=== PATIENT | female | born 1990 | race Caucasian/White ===

== ENCOUNTER 2017-01-24 08:20 | Emergency (ER) | payer OTHER ==
[2017-01-24] MEDS ORDERED: NAPROXEN 500 MG TABLET (FP) PO ONE (08:31)
[2017-01-24 08:37] VITALS: BP 137/87; PULSE 87; TEMP 98.5; BMI 41.5
--- NOTE | 2017-01-24 08:37 | PDOC ---
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 No trauma, never had bruising or swelling or redness, but reports discomfort along the dorsal lateral aspect of her left hand , particularly with movement of her thumb. No notable strain, no motor or sensory deficit, did not take anything for pain, presents today for evaluation because she is worried about her ability to work tomorrow. Clear that she's not , LMP 7/2. Past History - Past Medical History Allergies/Adverse Reactions: Allergies Allergy/AdvReac Type Severity Reaction Status Date / Time Sulfa (Sulfonamide Allergy Verified 01/24/17 08:22 Antibiotics) Home Medications: Ambulatory Orders Naproxen [Naprosyn -] 500 mg PO BID PRN #20 tablet 01/24/17 Review of Systems - Review of Systems Constitutional: No: Chills, Fever Musculoskeletal: Yes: Muscle Pain. No: Joint Pain Integumentary: No: Rash Neurological: No: Paresthesia, Weakness *Physical Exam - Physical Exam Comments: 01/24/17 08:33 GENERAL: The patient is awake, alert, and fully oriented, in no acute distress. HEAD: Normal with no signs of trauma. EYES: Pupils equal, round and reactive to light, extraocular movements intact, sclera anicteric, conjunctiva clear. EXTREMITIES: Normal skin, no swelling or discoloration/bruising/redness. No reproducible bony tenderness or deformity. Full range of motion of all joints with full strength, with pain reproducible with flexion of the left thumb. Only slight discomfort along the tendon/ligament sheath, brisk cap refill and sensory intact. NEUROLOGICAL: Normal speech, normal gait. PSYCH: Normal mood, normal affect. SKIN: Warm, Dry, normal turgor, no rashes or lesions noted. Medical Decision Making - Medical Decision Making 01/24/17 08:34 Healthy 26-year-old female with atraumatic left hand pain most consistent with de Quervain's tenosynovitis. Neurovascular intact, no evidence of infection. No indication for imaging Trial of NSAIDs, Quentin wrap applied for comfort Hand referral as needed, understands return criteria *DC/Admit/Observation/Transfer Diagnosis at time of Disposition: Tenosynovitis of hand - Discharge Dispostion Condition at time of disposition: Good - Prescriptions Prescriptions: Naproxen [Naprosyn -] 500 mg PO BID PRN #20 tablet PRN Reason: Pain - Referrals Referrals: Anthony Meek MD [Staff Physician] - Joce Gupta MD [Staff Physician] - - Patient Instructions Printed Discharge Instructions: DI for Tenosynovitis Additional Instructions: Activity as tolerated. Stay hydrated. Quentin wrap as instructed, avoid heavy lifting and avoid immobilization. Take naproxen twice daily as prescribed for 5 days, then as needed for any persistent pain. Take Pepcid 20 mg daily for the next 10 days (this is available over the counter), and take the naproxen with food to avoid stomach upset. You should follow up with a hand specialist as needed regarding today's emergency department visit, consider calling Dr. Meek or Dr. Gupta for an appointment. Return to the emergency department for any new or concerning symptoms, particularly persistent or intolerable pain, weakness or numbness, severe swelling or discoloration. - Post Discharge Activity Work/School Note: Back to Work
[2017-01-24] MEDS ORDERED: NAPROXEN 500 MG TABLET (FP) ONE (08:39)
== END 2017-01-24 09:16 | disposition home or self-care (01) ==
LOC: FER 08:20 → MERGE 08:20 → FER 09:16
DX: M65.9 Synovitis and tenosynovitis, unspecified (principal)
CPT/HCPCS: 99283-25

== ENCOUNTER 2017-06-19 07:08 | Emergency (ER) | payer OTHER ==
[2017-06-19 07:13] VITALS: BP 139/95; PULSE 111; TEMP 99; BMI 41.5
--- NOTE | 2017-06-19 07:29 | PDOC ---
History of Present Illness - General Chief Complaint: Rash Stated Complaint: RASH Time Seen by Provider: 06/19/17 07:10 History Source: Patient Exam Limitations: No Limitations - History of Present Illness Initial Comments: 06/19/17 07:23 26-year-old female with a history of asthma here today complaining of diffuse urticarial rash states rash started on day prior is pruritic denies new medications lotions no known food exposures no history of similar rash in the past is unsure worts causing it is pruritic mostly concentrated over her extremities less in the trunk no lip or tongue swelling no facial involvement Past History - Past Medical History Allergies/Adverse Reactions: Allergies Allergy/AdvReac Type Severity Reaction Status Date / Time sulfur dioxide Allergy Unknown Verified 05/03/16 15:24 Sulfa (Sulfonamide Allergy Verified 01/24/17 08:22 Antibiotics) Home Medications: Ambulatory Orders Desogestrel-Ethinyl Estradiol [Apri] 1 each PO DAILY 06/19/17 Prednisone [Deltasone] 20 mg PO BID #10 tablet 06/19/17 COPD: No Other medical history: DENIES - Immunization History Td Vaccination: Yes Immunization Up to Date: No - Suicide/Smoking/Psychosocial Hx Smoking Status: No Smoking History: Never smoked Number of Cigarettes Smoked Daily: 0 Cigars Per Day: 0 Hx Alcohol Use: No Drug/Substance Use Hx: No Substance Use Type: None, Alcohol Review of Systems - Review of Systems Constitutional: No: Chills HEENTM: No: Cataracts Respiratory: No: Orthopnea Cardiac (ROS): No: Chest Pain ABD/GI: No: Abdominal Distended : No: Burning Integumentary: Yes: Rash All Other Systems: Reviewed and Negative *Physical Exam - Vital Signs Last Vital Signs Temp Pulse Resp BP Pulse Ox 99 F 111 H 16 139/95 99 06/19/17 07:11 06/19/17 07:11 06/19/17 07:11 06/19/17 07:11 06/19/17 07:11 - Physical Exam General Appearance: Yes: Nourished, Appropriately Dressed HEENT: positive: Normal ENT Inspection, Pharynx Normal, Other (no tongue or lip swelling no stridor) Neck: positive: Trachea midline Respiratory/Chest: positive: Lungs Clear, Normal Breath Sounds. negative: Respiratory Distress Cardiovascular: positive: Regular Rhythm, Regular Rate, S1, S2 Gastrointestinal/Abdominal: positive: Normal Bowel Sounds, Flat, Soft. negative : Tender Integumentary: positive: Dry, Warm, Hives, Other (urticarial-like rash mac anterior thighs and arms) Neurologic: positive: Fully Oriented, Alert, Normal Mood/Affect Medical Decision Making - Medical Decision Making 06/19/17 07:27 We will treat with prednisone and Benadryl and Pepcid given patient work for 2 days as Bactrim and make her drowsy oral send home on prednisone for 3 days recommend follow for any lip or tongue swelling return for any problems or concerns and follow up with primary care doctor *DC/Admit/Observation/Transfer Diagnosis at time of Disposition: Urticarial rash - Discharge Dispostion Disposition: HOME Condition at time of disposition: Improved - Prescriptions Prescriptions: Prednisone [Deltasone] 20 mg PO BID #10 tablet - Referrals Referrals: Vince Boggs MD [Primary Care Provider] - - Patient Instructions Printed Discharge Instructions: Urticaria (Alternative Therapy) Additional Instructions: Take prednisone 20 mg twice daily 5 days. He should take Benadryl 50 mg every 6 hours as needed for itching or rash. Tried topical calamine lotion but also tried topical hydrocortisone cream which is [id number] 1% avoiding face and genitals. Follow-up with her primary care doctor return for any problems or concerns, shortness of breath, lip or tongue swelling or any facial swelling - Post Discharge Activity
[2017-06-19] MEDS ORDERED: FAMOTIDINE 20 MG TABLET PO ONE (07:32)
[2017-06-19] MEDS ORDERED: predniSONE 20 MG TABLET (UD) PO ONE (07:32)
[2017-06-19] MEDS ORDERED: diphenhydrAMINE HCL 25 MG CAPSULE (FP) PO ONE (07:32)
[2017-06-19] MEDS ORDERED: FAMOTIDINE 20 MG TABLET ONE (07:38)
[2017-06-19] MEDS ORDERED: diphenhydrAMINE HCL 50 MG CAPSULE ONE (07:38)
[2017-06-19] MEDS ORDERED: predniSONE 20 MG TABLET (UD) ONE (07:39)
== END 2017-06-19 07:47 | disposition home or self-care (01) ==
LOC: FER 07:08
DX: L50.9 Urticaria, unspecified (principal)
CPT/HCPCS: 99281-25

== ENCOUNTER 2018-10-06 10:53 | Emergency (ER) | payer OTHER ==
[2018-10-06 10:56] VITALS: BMI 41.5
[2018-10-06 11:02] VITALS: BP 135/92; PULSE 109; TEMP 99.2
--- NOTE | 2018-10-06 11:02 | PDOC ---
History of Present Illness - General Chief Complaint: Sore Throat Stated Complaint: SORE THROAT Time Seen by Provider: 10/06/18 10:56 - History of Present Illness Initial Comments: 10/06/18 11:26 27 years old no significant past medical history presents to the emergency Department 1 day history of mild congestion and ear discomfort sore throat mild headache yesterday which has since resolved no neck pain no body aches no cough no chest pain symptoms are mild to moderate persistent concent no clear exacerbating or relieving factors. Past History - Past Medical History Allergies/Adverse Reactions: Allergies Allergy/AdvReac Type Severity Reaction Status Date / Time sulfur dioxide Allergy Unknown Verified 10/06/18 10:54 Sulfa (Sulfonamide Allergy Verified 10/06/18 10:54 Antibiotics) Home Medications: Ambulatory Orders NK [No Known Home Medication] 10/06/18 COPD: No - Immunization History Td Vaccination: Yes Immunization Up to Date: No - Suicide/Smoking/Psychosocial Hx Smoking Status: No Smoking History: Never smoked Have you smoked in the past 12 months: No Number of Cigarettes Smoked Daily: 0 Cigars Per Day: 0 Hx Alcohol Use: No Drug/Substance Use Hx: No Substance Use Type: None, Alcohol Review of Systems - Review of Systems Comments:: 10/06/18 11:26 ROS: A complete review of 10 out of 10 review of systems is taken and is negative apart from what is previously mentioned below and in the HPI. *Physical Exam - Vital Signs Last Vital Signs Temp Pulse Resp BP Pulse Ox 99.2 F 109 H 18 135/92 100 10/06/18 10:54 10/06/18 10:54 10/06/18 10:54 10/06/18 10:54 10/06/18 10:54 - Physical Exam Comments: 10/06/18 11:26 Vitals: Triage Vital signs reviewed General Appearance: no acute distress, well nourished well developed, Head: Atraumatic, Nose: Nares patent bilaterally;no nasal congestion Throat: Posterior oropharynx with mild erythema, mucous membranes moist, Neck: Supple;No Nucal rigidity Chest Wall: Nontender Cardiac: Regular rate and rhythym, no murmurs, no rubs, no gallops, Lungs: Clear to auscultation bilateral, good air movement bilaterally, Extremities: Full range of motion to all extremities, no cyanosis, clubbing, or edema Skin: Warm and dry, no rashes or lesions, no rash, no petechiae Psych: normal mood, normal affect Medical Decision Making - Medical Decision Making 10/06/18 11:27 Well-appearing no apparent distress history examination consistent viral URI with mild viral pharyngitis Rapid strep negative We'll recommend conservative management follow-up with ENT and our clinic if symptoms persist Findings, need for follow-up and strict return instructions discussed patient. *DC/Admit/Observation/Transfer Diagnosis at time of Disposition: Viral URI Pharyngitis Qualifiers: Pharyngitis/tonsillitis etiology: unspecified etiology Qualified Code(s): J02.9 - Acute pharyngitis, unspecified - Discharge Dispostion Disposition: HOME Condition at time of disposition: Stable Decision to Admit order: No - Referrals - Patient Instructions Additional Instructions: Drink hot tea with honey. [id number] Motrin as directed on package. Follow -up with Dr. Cabrales ENT or your primary care provider within one week. Return to ED for any difficulty breathing swallowing severe worsening symptoms or for any concerns. - Post Discharge Activity
[2018-10-06] MEDS ORDERED: IBUPROFEN 400 MG TABLET (FP) PO ONE ×2 (11:32→11:37)
== END 2018-10-06 11:35 | disposition home or self-care (01) ==
LOC: FER 10:53
DX: J06.9 Acute upper respiratory infection, unspecified (principal); B97.89 Other viral agents as the cause of diseases classified elsewhere; Z88.2 Allergy status to sulfonamides; J02.9 Acute pharyngitis, unspecified
CPT/HCPCS: 87070; 87880; 99281-25

== ENCOUNTER 2019-05-03 08:57 | Emergency (ER) | payer OTHER ==
--- NOTE | 2019-05-03 09:02 | PDOC ---
History of Present Illness - General Chief Complaint: CVA/TIA Stated Complaint: right side numbness since yesterday Time Seen by Provider: 05/03/19 09:01 History Source: Patient Exam Limitations: No Limitations - History of Present Illness Initial Comments: 05/03/19 09:01 HPI 28 YOF with GERD presenting with right sided facial numbness and tingling a/w right eye pain and pressure, nausea and dizziness beginning last night at 5pm. denies triggering factors. lasted x several hours until she went to bed. due for menses soon; usually has irregular periods no history of headaches previously. 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 no recent infectious symptoms. no ocp use. Denies fever, chills, sore throat, ear pain/tinnitis, visual/hearing disturbances, chest pain, SOB, palpitation, dizziness, weakness, V, D, abdominal pain, bladder and bowel problems, focal weakness/paresthesias, leg swelling/pain, rash. No sick contacts or travel. No new changes in medications. No suspicious food intake Allergies: sulfa Past Medical History/PSH: as above Social history: Lives with family. No tobacco, ETOH or drug use. Meds: as documented in EMR Review of systems Constitutional: no fevers or chills. No weakness HEENT: +dizziness. No congestion. No visual/hearing disturbances. no headache. no sore throat, ear pain, eye discharge. no neck pain. CVS: no cp or syncope. Resp: no sob. No cough. Gastrointestinal: no abdominal pain, vomiting, diarrhea. +nausea Genitourinary: no urinary sx, hematuria. MUSCULOSKELETAL: No joint pain and swelling. No neck or back pain. SKIN: no redness or skin changes, no discharge, no rash. No wounds. Hematologic: no easy bruising/bleeding. NEUROLOGIC: No headache, dizziness, LOC or altered mental status. No weakness, numbness or tingling. Psych: no anxiety or depression Allergic/Immunologic: no allergies All other systems reviewed and negative, or as documented in HPI. Physical exam General: Well appearing, awake and alert, +anxious. HEENT: NCAT, PERRL, EOMI, no nystagmus, clear conjunctiva, anicteric, moist mucus membranes, clear oropharynx, no oral lesions.. bilateral t.m clear. TMJ stable Neck: neck supple, FROM, no regidity Resp: CTAB, normal and even respirations, no respiratory distress CVS: regular rate, no murmurs, 2+ peripheral pulses throughout, no peripheral edema Abdomen: soft, nontender, no rebound or guarding. Back: nontender, normal inspection and ROM MSK: no edema, JOHNSON x4, ROM intact. No clubbing or cyanosis. normal bulk and tone. Extremities: no calf tenderness Neuro: Alert, oriented appropriately. CN II-XII grossly intact. Strength prox and distally 5/5 throughout. Sensation grossly intact to light touch. JOHNSON x4. No cerebellar signs, no dysmetria, bilateral finger to nose and heel to cruz equal and symmetric. Speech clear. Psych: Calm and cooperative, +anxious Skin: warm and well perfused, cap refill <2 sec, normal color, no rash or skin discoloration. 05/03/19 09:18 05/03/19 09:35 05/03/19 09:36 Past History - Past Medical History Allergies/Adverse Reactions: Allergies Allergy/AdvReac Type Severity Reaction Status Date / Time sulfur dioxide Allergy Unknown Verified 05/03/19 09:00 Sulfa (Sulfonamide Allergy Verified 05/03/19 09:00 Antibiotics) Home Medications: Ambulatory Orders NK [No Known Home Medication] 10/06/18 COPD: No - Immunization History Td Vaccination: Yes Immunization Up to Date: No - Psycho Social/Smoking Cessation Hx Smoking Status: No Smoking History: Never smoked Have you smoked in the past 12 months: No Number of Cigarettes Smoked Daily: 0 Cigars Per Day: 0 Hx Alcohol Use: No Drug/Substance Use Hx: No Substance Use Type: None, Alcohol Medical Decision Making - Medical Decision Making 05/03/19 09:21 Vital Signs Temp Pulse Resp BP Pulse Ox 98.6 F 86 18 155/89 100 05/03/19 09:00 05/03/19 09:00 05/03/19 09:00 05/03/19 09:00 05/03/19 09:00 Differential diagnosis includes CVA, APRICOT WASHER mass, migraine, tension, cluster headache, , trigeminal neuralgia Patient is neurologically intact, HEENT is also unremarkable, mentating appropriately, speech is clear and gait is stable. Will obtain CT head to evaluate for APRICOT WASHER mass for first-time headache. Denies any particular triggers, no seizure, no altered mental status, no infectious etiology and no prodromal symptoms of respiratory or GI infection. [id number] test is negative. Will give Reglan and Toradol for the facial numbness/tingling, appears like trigeminal neuralgic pain in the appropriate distribution of V2 to V3. CT head is negative for acute hemorrhage, mass or CVA. Neurologic symptoms do not fit into particular distribution for CVA with no sig comorbidities or history consistent with CVA, as symptoms are most likely peripheral. Pt to be discharged in stable condition. Patientmade aware of clinical impression, treatment recommendations and disposition plan, return precautions discussed (including but not limited to new or persistent/worsening symptoms, pain, fevers, or signs of infection, chest pain, respiratory distress, inability to tolerate oral intake, dehydration, syncope, or neurologic changes) . Follow up with PMD and/or specialist as recommended, follow up information provided, take medications as instructed for duration of time. continue with supportive care, avoid triggers and precipitants. All questions answered to patient's satisfaction and expressed understanding and comfort with this. At the time of discharge, the patient is alert, clinically improved, tolerating po and verbalizes understanding of instructions, satisfied with the care received and felt comfortable with the plan. Patient does not suffer from an acute life- threatening medical condition at this time and is safe for outpatient follow- up. 05/03/19 09:23 05/03/19 09:57 Discharge - Discharge Information Problems reviewed: Yes Clinical Impression/Diagnosis: Facial paresthesia Condition: Stable Disposition: HOME - Admission No - Follow up/Referral Referrals: Carolyn Lagunas MD [Primary Care Provider] - Chirag Dial MD [Staff Physician] - Leonardo Blair MD [Staff Physician] - Simone Broderick MD [Staff Physician] - - Patient Discharge Instructions Patient Printed Discharge Instructions: DI for Numbness/tingling Additional Instructions: 1) Please follow-up with your primary care doctor in the next 1-2 days. Please call tomorrow for for any urgent issues. neurology followup referrals also given for checking on your symptoms. 2) You were given a copy of the tests performed today. Please bring the results with you and review them with your primary care doctor. Your laboratory / imaging results were normal 3) If you have any worsening of symptoms or any other concerns please return to the ED immediately. Return if worsening symptoms including fevers, headache, vomiting, visual or hearing disturbances, abdominal pain, chest pain, shortness of breath, syncope, dehydration, inability to take things by mouth/vomiting, altered mental status, or worsening concerning symptoms. 4) Please continue taking your home medications as directed. your medications on discharge include analgesics over the counter such as ibuprofen/advil/aleve . side effects may include upset stomach, abdominal pain, vomiting, or diarrhea. do not drink alcohol with your medications. Stay well hydrated and rest adequately. Make an appointment. If you cannot follow-up with your primary care doctor please return to the ED - Post Discharge Activity Work/Back to School Note: Back to Work
[2019-05-03 09:13] VITALS: BP 155/89; PULSE 86; TEMP 98.6; BMI 43.4
[2019-05-03] MEDS ORDERED: KETOROLAC TROMETHAMINE 30 MG/1 ML VIAL IM ONE (09:18)
[2019-05-03] MEDS ORDERED: METOCLOPRAMIDE HCL 10 MG TABLET (FP) PO ONE ×2 (09:18→09:24)
[2019-05-03] MEDS ORDERED: KETOROLAC TROMETHAMINE 30 MG/1 ML VIAL ONE (09:24)
== END 2019-05-03 10:17 | disposition home or self-care (01) ==
LOC: FER 08:57
PROC: 3E0233Z Introduction of Anti-inflammatory into Muscle, Percutaneous Approach (ICD-10-PCS; principal; 2019-05-03)
DX: R20.2 Paresthesia of skin (principal); Z88.8 Allergy status to other drugs, medicaments and biological substances; Z88.2 Allergy status to sulfonamides; K21.9 Gastro-esophageal reflux disease without esophagitis
CPT/HCPCS: 70450-TC; 81025; 99281-25

== ENCOUNTER 2020-01-24 05:06 | Emergency (ER) | payer OTHER ==
[2020-01-24 05:11] VITALS: BP 130/88; PULSE 113; TEMP 98.2; BMI 41.5
--- NOTE | 2020-01-24 05:22 | PDOC ---
History of Present Illness - General Chief Complaint: CVA/TIA Stated Complaint: TINGLING AND NUMBNESS Time Seen by Provider: 01/24/20 05:13 History Source: Patient Exam Limitations: No Limitations - History of Present Illness Initial Comments: 01/24/20 05:19 This is a 29-year-old female who comes in complaining of intermittent paresthesias of her right side. Patient was here approximately 2 months ago and had a CAT scan. Patient has been having these intermittent paresthesias now for multiple months and they seem to be exacerbated by certain movements and certain positions that she puts her head or arm in. Patient says as soon as she stops a particular movement that they disappear. Patient comes in because she does not want to wait until she sees the neurologist and wants to try to get an MRI before that. Assessment and plan: This is a 29-year-old female who comes in complaining of intermittent paresthesias of her extremities on the right-hand side as well as her face. They are precipitated by certain movements and relieved by stopping those movements. This most likely secondary assessment and plan: Allergies: as per nursing notes Past Medical History: none Social history: Lives with family. No smoking. No alcohol. No illicit drugs. Surgical history: None General: No fevers or chills, no weakness, no weight loss HEENT: No change in vision. No sore throat,. No ear pain CardioVascular: no chest discomfort. No shortness of breath Respiratory:No cough, or wheezing. Gastrointestinal: no nausea, vomiting, diarrhea or constipation, No rectal bleeding Genitourinary: No dysuria, hematuria, or frequency Musculoskeletal: No joint or muscle pain or swelling Neurologic: No headache, vertigo, dizziness or loss of consciousness Psychiatric: nor depression Skin: No rashes or easy bruising Endocrine: no increased thirst or abnormal weight change Allergic: no skin or latex allergy All other systems reviewed and normal Exam: General: Well-nourished well-developed individual, no acute distress HEENT: Throat: Normal, tonsils normal, no erythema or exudate Neck: Supple, no meningeal signs, no lymphadenopathy Eyes::Pupils equal reactive and round, extraocular motion intact Chest: Nontender to palpation Cardiac: S1-S2 normal, regular rate and rhythm, no murmurs rubs or gallops Respiratory: Lungs clear to auscultation bilateral Abdomen: Soft, nondistended, normal bowel sounds, there is no tenderness on palpation diffusely Extremities: Warm, dry, no cyanosis, clubbing, or edema Skin: No rashes Neuro: Alert and oriented x3, CN II - XII intact, nonfocal exam with normal strength, normal sensation, normal reflexes, normal gait, Psych: Normal mood and affect 01/24/20 05:22 Past History - Medical History Allergies/Adverse Reactions: Allergies Allergy/AdvReac Type Severity Reaction Status Date / Time sulfur dioxide Allergy Unknown Verified 05/03/19 09:00 Sulfa (Sulfonamide Allergy Verified 05/03/19 09:00 Antibiotics) Home Medications: Ambulatory Orders NK [No Known Home Medication] 10/06/18 COPD: No - Immunization History Td Vaccination: Yes Immunization Up to Date: No - Psycho-Social/Smoking History Smoking Status: No Smoking History: Never smoked Have you smoked in the past 12 months: No Number of Cigarettes Smoked Daily: 0 Cigars Per Day: 0 Information on smoking cessation initiated: No - Substance Abuse Hx (Audit-C & DAST Scrn) How often the patient has a drink containing alcohol: Never Score: In Men: 4 or > Positive; In Women: 3 or > Positive: 0 Screen Result (Pos requires Nsg. Audit-10AR): Negative In the last yr the pt used illegal drug/Rx for NonMed reason: No Score: Yes response is considered Positive: 0 Screen Result (Positive result requires Nsg. DAST-10): Negative *Physical Exam - Vital Signs Last Vital Signs Temp Pulse Resp BP Pulse Ox 98.2 F 113 H 18 130/88 100 01/24/20 05:07 01/24/20 05:07 01/24/20 05:07 01/24/20 05:07 01/24/20 05:07 Discharge - Discharge Information Problems reviewed: Yes Clinical Impression/Diagnosis: Intermittent paresthesia of right hand and foot Condition: Stable Disposition: HOME - Admission No - Follow up/Referral - Patient Discharge Instructions Additional Instructions: It is important that you keep your an appointment with the neurologist. Return to the emergency department immediately with ANY new, persistent or worsening symptoms. Continue any medications as previously prescribed by your physician. You should follow up with your primary doctor as soon as possible regarding today's emergency department visit. . Please make sure your doctor reviews the results of your emergency evaluation. Thank you for coming to the Emergency Department today for your care. It was a pleasure to see you today. Please note that your evaluation is INCOMPLETE until you follow-up with your doctor. - Post Discharge Activity
== END 2020-01-24 05:59 | disposition home or self-care (01) ==
LOC: FER 05:06
DX: R20.2 Paresthesia of skin (principal)
CPT/HCPCS: 99282-25

== ENCOUNTER 2020-06-24 12:01 | Emergency (ER) | payer OTHER | END 2020-06-24 14:36 | disposition home or self-care (01) | LOC: JVIRT 12:01 | DX: R07.0 Pain in throat (principal); Z20.828 Contact with and (suspected) exposure to other viral communicable diseases | CPT/HCPCS: C9803; G2012-GT; U0003 ==

== ENCOUNTER 2020-12-16 00:38 | Emergency (ER) | payer OTHER ==
[2020-12-16 00:49] VITALS: BP 131/88; PULSE 124; TEMP 98.9; BMI 43.4
[2020-12-16 02:29] LABS: BASO % 0.3 % (0-2.0); EOS % 1.2 % (0-4.5); HEMATOCRIT 39.4 % (32.4-45.2); HEMOGLOBIN 13.5 GM/dL (10.7-15.3); LYMPH % 16.8 % (8-40); MCH 29.7 pg (25.7-33.7); MCHC 34.3 g/dl (32.0-36.0); MEAN CELL VOLUME 86.7 fl (80-96); MEAN PLT VOLUME 6.9 fl (7.5-11.1); MONO % 7.5 % (3.8-10.2); NEUT % 74.2 % (42.8-82.8); PLATELET COUNT 485 K/MM3 (134-434); RBC 4.54 M/mm3 (3.60-5.2); RDW 13.7 % (11.6-15.6); WHITE BLOOD COUNT 14.2 K/mm3 (4.0-10.0)
[2020-12-16 02:37] LABS: CHLORIDE 107 mmol/L (98-107); SODIUM 139 mmol/L (136-145)
[2020-12-16 02:39] LABS: CALCIUM 9.1 mg/dL (8.5-10.1)
[2020-12-16 02:40] LABS: ALBUMIN 3.7 g/dl (3.4-5.0); ANION GAP 8 MMOL/L (8-16); BLOOD UREA NITROGEN 11.9 mg/dL (7-18); CO2 24 mmol/L (21-32); GLUCOSE,RANDOM 131 mg/dL (74-106); MAGNESIUM 2.2 mg/dL (1.8-2.4)
[2020-12-16 02:43] LABS: CREATININE 0.7 mg/dL (0.55-1.3); SGOT/AST 13 U/L (15-37); SGPT/ALT 24 U/L (13-61)
[2020-12-16 02:44] LABS: BILIRUBIN,TOTAL 0.3 mg/dL (0.2-1)
[2020-12-16 02:45] LABS: TOT PROT 7.4 g/dl (6.4-8.2)
[2020-12-16 02:46] LABS: ALK PHOS 71 U/L (45-117)
== END 2020-12-16 03:17 | disposition home or self-care (01) ==
LOC: FER 00:38 → SUPCPDRO 00:38 → FER 03:17
DX: R00.2 Palpitations (principal); R07.9 Chest pain, unspecified
CPT/HCPCS: 36415; 71045-TC-FY; 80053; 81025; 82550; 83735; 84484; 85025; 93005; 99285-25

== ENCOUNTER 2021-03-11 07:05 | Emergency (ER) | payer OTHER ==
[2021-03-11 07:13] VITALS: TEMP 98; BMI 44.9
[2021-03-11] MEDS ORDERED: ACETAMINOPHEN 500 MG TABLET (FP) ONE (07:23)
[2021-03-11] MEDS ORDERED: ACETAMINOPHEN 500 MG TABLET (FP) PO ONE (07:23)
[2021-03-11 07:27] VITALS: BP 143/91; PULSE 88
== END 2021-03-11 07:44 | disposition home or self-care (01) ==
LOC: FER 07:05
DX: R07.89 Other chest pain (principal)
CPT/HCPCS: 93005; 99283-25

== ENCOUNTER 2021-08-06 09:59 | Emergency (ER) | payer OTHER ==
[2021-08-06 10:12] VITALS: BP 133/77; PULSE 98; TEMP 99.3; BMI 34.0
[2021-08-06 10:49] LABS: HCG,QUALITATIVE URINE Negative
[2021-08-06 11:04] LABS: EPITHELIAL CELLS FEW /hpf
[2021-08-06 11:17] LABS: ALBUMIN 3.9 g/dl (3.4-5.0); BILIRUBIN,TOTAL 0.4 mg/dl (0.2-1); CALCIUM 9.4 mg/dl (8.5-10); CREATININE 0.7 mg/dl (0.55-1.3); TOT PROT 7.4 g/dl (6.4-8.2)
[2021-08-06 11:49] LABS: BASO % 0.4 % (0-2.0); EOS % 1.3 % (0-4.5); HEMATOCRIT 40.4 % (32.4-45.2); HEMOGLOBIN 13.8 GM/dL (10.7-15.3); LYMPH % 25.7 % (8-40); MCH 29.4 pg (25.7-33.7); MCHC 34.1 g/dl (32.0-36.0); MEAN CELL VOLUME 86.2 fl (80-96); MEAN PLT VOLUME 6.8 fl (7.5-11.1); MONO % 6.6 % (3.8-10.2); PLATELET COUNT 543 10^3/uL (134-434); RBC 4.68 M/mm3 (3.60-5.2); RDW 13.3 % (11.6-15.6); WHITE BLOOD COUNT 11.3 K/mm3 (4.0-10.0)
[2021-08-06] MEDS ORDERED: ACETAMINOPHEN 325 MG TABLET (FP) PO ONE (12:26)
[2021-08-06] MEDS ORDERED: KETOROLAC TROMETHAMINE 30 MG/1 ML VIAL IVPUSH ONE (12:26)
[2021-08-06] MEDS ORDERED: ACETAMINOPHEN 325 MG TABLET (FP) ONE (12:29)
[2021-08-06] MEDS ORDERED: KETOROLAC TROMETHAMINE 30 MG/1 ML VIAL ONE (12:29)
[2021-08-06] MEDS ORDERED: FAMOTIDINE 20 MG/50 ML IVPB 20 MG/50 ML MG IVPB ONE (12:38)
[2021-08-06] MEDS ORDERED: ONDANSETRON 4 MG/2 ML VIAL ONE (12:40)
[2021-08-06] MEDS ORDERED: ACETAMINOPHEN INJECTION 100 ML IVPB ONE (12:44)
== END 2021-08-06 13:36 | disposition home or self-care (01) ==
LOC: FER 09:59
PROC: 3E0333Z Introduction of Anti-inflammatory into Peripheral Vein, Percutaneous Approach (ICD-10-PCS; principal; 2021-08-06)
DX: R10.9 Unspecified abdominal pain (principal)
CPT/HCPCS: 36415; 74177-TC; 80053; 81003; 81015; 83690; 84703; 85025; 99285-25; Q9967

== ENCOUNTER 2021-10-20 11:55 | Emergency (ER) | payer OTHER ==
[2021-10-20 12:18] VITALS: BP 127/78; PULSE 99; TEMP 98.6; BMI 39.4
[2021-10-20] MEDS ORDERED: SODIUM CHLORIDE 0.9% 500 ML INFUS.BAG IV ONE (13:00)
[2021-10-20] MEDS ORDERED: ACETAMINOPHEN 325 MG TABLET (FP) PO ONE (13:01)
[2021-10-20] MEDS ORDERED: ACETAMINOPHEN 325 MG TABLET (FP) ONE (14:20)
[2021-10-20 14:44] LABS: MEAN CELL VOLUME 87.1 fl (80-96)
[2021-10-20 15:08] LABS: ALBUMIN 3.9 g/dl (3.4-5.0); BILIRUBIN,TOTAL 0.6 mg/dl (0.2-1); CALCIUM 9.4 mg/dl (8.5-10); CREATININE 0.6 mg/dl (0.55-1.3); TOT PROT 7.5 g/dl (6.4-8.2)
[2021-10-20 15:13] LABS: HEMATOCRIT 40.5 % (32.4-45.2); MCH 30.1 pg (25.7-33.7); MCHC 34.6 g/dl (32.0-36.0); MEAN PLT VOLUME 6.8 fl (7.5-11.1); PLATELET COUNT 496.3 10^3/uL (134-434); RBC 4.65 10^6/uL (3.60-5.2); RDW 13.9 % (11.6-15.6); WHITE BLOOD COUNT 9.8 10^3/uL (4.0-10.8)
[2021-10-20 17:03] LABS: ANISOCYTOSIS RARE
[2021-10-20 17:04] LABS: PLATELET ESTIMATE SIGNIFICANT INCREASE
[2021-10-21 23:06] LABS: SARS-CoV-2 NAA Detected (Not Detected)
== END 2021-10-20 15:47 | disposition home or self-care (01) ==
LOC: FER 11:55
DX: R07.0 Pain in throat (principal)
CPT/HCPCS: 36415; 80053; 85027; 87804; 93005; 99284-25; C9803-CS; U0003; U0005

== ENCOUNTER 2023-09-09 21:14 | Emergency (ER) | payer OTHER ==
[2023-09-09 21:26] VITALS: RESP 18; BMI 41.1
[2023-09-09] MEDS: SODIUM CHLORIDE 1,000 ML IV ONE (22:13)
[2023-09-09 22:19] LABS: HEMATOCRIT 43.5 % (32.4-45.2); HEMOGLOBIN 15.1 G/dL (10.7-15.3); MCH 30.6 pg (25.7-33.7); MCHC 34.7 g/dl (32.0-36.0); MEAN PLT VOLUME 7.7 fl (7.5-11.1); PLATELET COUNT 510.6 10^3/uL (134-434); RBC 4.94 10^6/uL (3.60-5.2); RDW 14.3 % (11.6-15.6); WHITE BLOOD COUNT 20.9 10^3/uL (4.0-10.8)
[2023-09-09 22:40] LABS: ALBUMIN 4.4 g/dl (3.4-5.0); BILIRUBIN,TOTAL 0.5 mg/dl (0.2-1); CALCIUM 9.7 mg/dl (8.5-10.1); CREATININE 0.6 mg/dl (0.6-1.3); MAGNESIUM 1.9 mg/dL (1.8-2.4); PHOSPHOROUS 3.3 (2.5-4.9); POTASSIUM 3.6 mmol/L (3.5-5.1); TOT PROT 7.7 g/dl (6.4-8.2)
[2023-09-09 22:43] LABS: PLATELET ESTIMATE INCREASED
[2023-09-09 23:56] VITALS: BP 125/79; PULSE 110; TEMP 98.9
[2023-09-10] MEDS: ONDANSETRON 4 MG/2 ML VIAL IVPB ONE (00:22)
[2023-09-10] MEDS ORDERED: ONDANSETRON 4 MG/2 ML VIAL ONE ×2 (05:05)
[2023-09-10] MEDS ORDERED: ACETAMINOPHEN INJECTION 100 ML IVPB ONE (05:10)
[2023-09-10] MEDS: ACETAMINOPHEN 1000 MG/100 ML BAG IVPB ONE (05:12)
[2023-09-10] MEDS ORDERED: ACETAMINOPHEN 1000 MG/100 ML BAG IVPB ONE (05:34)
== END 2023-09-10 05:25 | disposition home or self-care (01) ==
LOC: FER 21:14
PROC: 3E033GC Introduction of Other Therapeutic Substance into Peripheral Vein, Percutaneous Approach (ICD-10-PCS; 2023-09-09)
PROC: 3E0337Z Introduction of Electrolytic and Water Balance Substance into Peripheral Vein, Percutaneous Approach (ICD-10-PCS; 2023-09-09)
PROC: 3E033NZ Introduction of Analgesics, Hypnotics, Sedatives into Peripheral Vein, Percutaneous Approach (ICD-10-PCS; principal; 2023-09-10)
DX: K59.00 Constipation, unspecified (principal); R10.9 Unspecified abdominal pain; K62.89 Other specified diseases of anus and rectum
CPT/HCPCS: 36415; 74177-TC; 80053; 83735; 84100; 85027; 99285-25; J0131; Q9967

== ENCOUNTER 2023-09-15 09:59 | Emergency (ER) | payer OTHER ==
[2023-09-15 10:08] VITALS: BMI 40.4
[2023-09-15] MEDS ORDERED: BISACODYL 10 MG SUPP.RECT ONE (13:39)
[2023-09-15] MEDS: BISACODYL 10 MG SUPP.RECT PR ONE (13:45)
[2023-09-15] MEDS ORDERED: ACETAMINOPHEN 650 MG/20.3 ML ORAL SOLUTION (CUPS) ONE (15:05)
[2023-09-15] MEDS: ACETAMINOPHEN 650 MG/20.3 ML ORAL SOLUTION (CUPS) PO ONE (15:14)
[2023-09-15 16:34] VITALS: BP 116/74; PULSE 76; RESP 16; TEMP 9838
== END 2023-09-15 16:34 | disposition home or self-care (01) ==
LOC: FER 09:59
DX: K59.00 Constipation, unspecified (principal); R11.0 Nausea; R10.9 Unspecified abdominal pain
CPT/HCPCS: 99283-25

== ENCOUNTER 2023-09-18 17:02 | Emergency (ER) | payer OTHER ==
[2023-09-18 18:10] VITALS: BP 115/82; PULSE 85; RESP 18; TEMP 97.8; BMI 40.6
[2023-09-18] MEDS ORDERED: MAGNESIUM HYDROX 2400MG/30ML ORAL SUSPENSION 30 ML CUP ONE (18:59)
[2023-09-18] MEDS: SODIUM PHOSPHATE/NA BIPHOS 133 ML ENEMA PR ONE (19:18)
[2023-09-18] MEDS: MAGNESIUM HYDROX 2400MG/30ML ORAL SUSPENSION 30 ML CUP PO ONE (19:18)
== END 2023-09-18 20:00 | disposition home or self-care (01) ==
LOC: FER 17:02
DX: K59.00 Constipation, unspecified (principal); K56.41 Fecal impaction
CPT/HCPCS: 99283-25